=== PATIENT | female | born 1975 | race Caucasian/White ===

== ENCOUNTER 2017-04-11 10:22 | Emergency (ER) | payer OTHER ==
[~2017-04-11] VITALS: Ht 170.2 cm; Wt 56.7 kg
[2017-04-11] MEDS ORDERED: CIPRO500 MG PO (18:00)
== END 2017-04-11 18:35 | disposition home or self-care (01) ==
LOC: ER 10:22
DX: N39.0 Urinary tract infection, site not specified (principal); R10.84 Generalized abdominal pain

== ENCOUNTER 2019-12-14 17:50 | Emergency (ER) | payer OTHER ==
[~2019-12-14] VITALS: Ht 170.2 cm; Wt 63.5 kg
[~2019-12-14 17:50] MED LIST: CIPRO500 MG PO; PANADOL EXTRA500 MG; PROTONIX20 MG
== END 2019-12-15 02:06 | disposition home or self-care (01) ==
LOC: ER 17:50
DX: M51.34 Other intervertebral disc degeneration, thoracic region (principal)